=== PATIENT | female | born 1995 | race American Indian/Alaskan Native ===

== ENCOUNTER 2021-03-31 16:27 | Outpatient (CLI) | payer OTHER ==
[2021-03-31 16:55] VITALS: BP 118/68
[2021-03-31 17:42] LABS: Bilirubin,Urine NEG (Negative); Blood,Urine NEG (Negative); Color,Urine Yellow (Yellow); Mucus,Urine FEW /HPF; Protein,Urine <15 mg/dL mg/dL (Negative); Urobilinogen,Urine < 2.0 mg/dL (<2.0)
[2021-03-31] MEDS ORDERED: LACTATED RINGERS 1,000 ML IV ONE ×2 (17:48→18:00)
[2021-03-31] MEDS ORDERED: TERBUTALINE 1 MG/1 ML INJ SUB-Q SCH (18:00)
--- NOTE | 2021-03-31 19:34 | Event Note ---
Date: 03/31/21 (Abominal pain) Pt is a @ 28 + wks with c/o of abdominal pain. States that she has been standing on her feet all day. 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 An FFN and vaginal wet prep swab sent. Contractions were noted on monitor upon admission to OB triage. Cervical exam cl/th/hi. IV fluids and terbutaline ordered. Plan to watch patient for labor. Discussed with patient, if her contractions stop, no change in her cervix she will be discharged home. Pt verbalized understanding. Report to distribution agent CNM given on patient condition and status.
== END 2021-03-31 20:27 | disposition home or self-care (01) ==
LOC: TRG 16:27 → APU 16:29 → TRG 20:27
PROVIDERS: ATTEND Obstetrics & Gynecology
DX: O60.03 Preterm labor without delivery, third trimester (principal); Z3A.28 28 weeks gestation of pregnancy
CPT/HCPCS: 36415; 59025; 81001; 82731; 87210; 96360; 96372; J3105; J7120

== ENCOUNTER 2021-08-28 13:24 | Emergency (ER) | payer OTHER | END 2021-08-28 17:18 | LOC: ED 13:24 | DX: R10.30 Lower abdominal pain, unspecified (principal); Z53.21 Procedure and treatment not carried out due to patient leaving prior to being seen by health care provider ==